=== PATIENT | female | born 2000 | race Two or more races ===

== ENCOUNTER 2024-11-30 07:10 | Emergency (ER) | payer OTHER ==
[~2024-11-30] VITALS: Ht 170.2 cm; Wt 59.9 kg
[~2024-11-30 07:10] MED LIST: KETO10TA2 PO; ORPHENADRINE C100 MG PO
[2024-11-30 09:01] LABS: HEMATOCRIT 40.2 % (36.0-45.00); HEMOGLOBIN 13.1 g/dL (12.0-15.00); MEAN CELL VOLUME 77.1 fL (80.00-100.00); MEAN CORPUSCULAR HEMOGLOBIN 25.2 pg (27.00-32.0); MEAN CORPUSCULAR HGB CONC 32.7 g/dl (32.0-36.0); PLATELET COUNT 246 K/uL (150-450); RED BLOOD COUNT 5.21 M/uL (4.00-6.00); RED CELL DISTRIBUTION WIDTH 15.5 % (11.5-14.5)
[2024-11-30 09:22] LABS: PH,URINE 5.5 (5.0-8.0); URINE APPEARANCE Cloudy; URINE BILIRRUBIN Negative (NEGATIVE); URINE BLOOD Moderate; URINE COLOR Yellow; URINE GLUCOSE Negative (NEGATIVE); URINE KETONE Trace (NEGATIVE); URINE LEUKOCYTE Moderate; URINE NITRATE Positive; URINE PROTEIN 30 (NEGATIVE); URINE UROBILINOGEN 0.2 E.U./dl
[2024-11-30 09:28] LABS: URINE BACTERIA 327.9 uL (0.0-1933); URINE EPITHELIAL CELLS 25.9 uL (0.0-38.8); URINE RBC 160.7 uL (0.0-20.8); URINE WBC 1242.3 uL (0.0-23.2)
[2024-11-30 09:43] LABS: URINE CAST 1.03 uL (0.0-1.40)
[2024-11-30 12:00] LABS: CREATININE SERUM 0.72 mg/dL (0.55-1.02); GFR 100.38; POTASSIUM 3.37 mEq/L (3.5-5.1)
== END 2024-11-30 16:16 | disposition home or self-care (01) ==
LOC: ER 07:12
PROVIDERS: Emergency Medicine
DX: O26.891 Other specified pregnancy related conditions, first trimester (principal); R10.2 Pelvic and perineal pain; O23.41 Unspecified infection of urinary tract in pregnancy, first trimester; N39.0 Urinary tract infection, site not specified; Z3A.01 Less than 8 weeks gestation of pregnancy; Z91.013 Allergy to seafood

== ENCOUNTER 2025-02-15 03:28 | Emergency (ER) | payer OTHER ==
[~2025-02-15] VITALS: Ht 170.2 cm; Wt 66.7 kg
[2025-02-15 06:48] LABS: URINE APPEARANCE Clear; URINE BACTERIA 1117.4 uL (0.0-1933); URINE BILIRRUBIN Negative (NEGATIVE); URINE BLOOD Negative; URINE COLOR Yellow; URINE EPITHELIAL CELLS 44.8 uL (0.0-38.8); URINE GLUCOSE Negative (NEGATIVE); URINE KETONE 15 (NEGATIVE); URINE LEUKOCYTE Moderate; URINE NITRATE Negative; URINE PROTEIN Trace (NEGATIVE); URINE RBC 4.2 uL (0.0-20.8); URINE UROBILINOGEN 0.2 E.U./dl; URINE WBC 57.1 uL (0.0-23.2)
[2025-02-15 06:51] LABS: URINE CAST 0.29 uL (0.0-1.40)
[2025-02-15 06:57] LABS: URINE YEAST FEW /hpf
[2025-02-15] MEDS ORDERED: MACROBID 100 M100 MG PO (07:16)
== END 2025-02-15 08:09 | disposition home or self-care (01) ==
LOC: ER 03:28
PROVIDERS: General Practice
DX: Z34.90 Encounter for supervision of normal pregnancy, unspecified, unspecified trimester (principal); Z3A.15 15 weeks gestation of pregnancy; R53.81 Other malaise; N39.0 Urinary tract infection, site not specified; R51.9 Headache, unspecified; Z20.822 Contact with and (suspected) exposure to COVID-19; Z91.013 Allergy to seafood

== ENCOUNTER 2025-03-16 15:22 | Outpatient (CLI) | payer OTHER ==
[~2025-03-16 15:22] MED LIST changes: +MACROBID 100 M100 MG PO
== END 2025-03-16 15:24 | disposition home or self-care (01) ==
LOC: PRENATAL 15:22
PROVIDERS: ATTEND Obstetrics & Gynecology Maternal & Fetal Medicine
DX: O35.00X0 Maternal care for (suspected) central nervous system malformation or damage in fetus, unspecified, not applicable or unspecified (principal); O35.3XX0 Maternal care for (suspected) damage to fetus from viral disease in mother, not applicable or unspecified; O44.00 Complete placenta previa NOS or without hemorrhage, unspecified trimester; O34.40 Maternal care for other abnormalities of cervix, unspecified trimester; Z3A.20 20 weeks gestation of pregnancy

== ENCOUNTER 2025-06-12 13:47 | Outpatient (CLI) | payer OTHER | END 2025-06-12 13:48 | disposition home or self-care (01) | LOC: PRENATAL 13:47 | DX: O26.849 Uterine size-date discrepancy, unspecified trimester (principal); O36.8199 Decreased fetal movements, unspecified trimester, other fetus; O34.40 Maternal care for other abnormalities of cervix, unspecified trimester; Z3A.34 34 weeks gestation of pregnancy ==